=== PATIENT | female | born 2000 | race Two or more races ===

== ENCOUNTER 2018-09-01 18:08 | Emergency (ER) | payer MEDICAID ==
[~2018-09-01] VITALS: Ht 165.1 cm; Wt 61.1 kg
[2018-09-01 18:13] VITALS: BP 142/104
--- NOTE | 2018-09-01 19:00 | NUR ---
NO ANSWER IN LOBBY
--- NOTE | 2018-09-01 19:54 | NUR ---
PT IN ROOM 6 AT THIS TIME
[2018-09-01] MEDS ORDERED: CYCLOBENZAPRINE 10 MG TABLET PO ONE (20:30)
[2018-09-01] MEDS ORDERED: KETOROLAC 30 MG/1 ML IM ONE (20:30)
[2018-09-01] MEDS ORDERED: KETOROLAC 30 MG/1 ML ONE (20:35)
[2018-09-01] MEDS ORDERED: CYCLOBENZAPRINE 10 MG TABLET ONE (20:36)
== END 2018-09-01 21:04 | disposition home or self-care (01) ==
LOC: ED 20:58
DX: S16.1XXA Strain of muscle, fascia and tendon at neck level, initial encounter (principal); S29.012A Strain of muscle and tendon of back wall of thorax, initial encounter; V49.49XA Driver injured in collision with other motor vehicles in traffic accident, initial encounter; Y93.89 Activity, other specified; Y92.89 Other specified places as the place of occurrence of the external cause; Y99.8 Other external cause status
CPT/HCPCS: 72125; 96372; 99284; J1885

== ENCOUNTER 2018-09-12 18:45 | Emergency (ER) | payer MEDICAID ==
[~2018-09-12] VITALS: Ht 165.1 cm; Wt 62.9 kg
[2018-09-12 18:56] VITALS: BP 134/98
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
[2018-09-12 22:05] LABS: BASOPHILS # (AUTO) 0.03 x10^3/uL (0-0.3); BASOPHILS % (AUTO) 0 % (0-1); EOSINOPHILS # (AUTO) 0.11 x10^3/uL (0-0.8); EOSINOPHILS % (AUTO) 1 % (1-7); LYMPHOCYTES # (AUTO) 2.72 x10^3/uL (1-6.1); LYMPHOCYTES % (AUTO) 34 % (22-44); MD NO; MEAN CORPUSCULAR HEMOGLOBIN 29.2 pg (27.0-34.8); MEAN CORPUSCULAR HGB CONC 33.6 g/dL (32.4-35.8); MEAN CORPUSCULAR VOLUME 86.9 fL (80-100); MEAN PLATELET VOLUME 8.7 fL (7.4-10.4); MONOCYTES # (AUTO) 0.65 x10^3/uL (0-1.4); MONOCYTES % (AUTO) 8 % (2-9); NEUTROPHILS # (AUTO) 4.45 x10^3/uL (1.8-8.0); NEUTROPHILS % (AUTO) 56 % (42-75); PLATELET COUNT 228 x10^3/uL (130-400); RED BLOOD COUNT 4.73 x10^6/uL (3.82-5.3); RED CELL DISTRIBUTION WIDTH 13.5 % (9.6-15.2)
[2018-09-12 22:16] LABS: ALANINE AMINOTRANSFERASE 26 U/L (12-78); ALBUMIN 4.2 g/dL (3.4-5.0); ANION GAP 4 mmol/L (5-15); CALCIUM 8.4 mg/dL (8.5-10.1); CHLORIDE 109 mmol/L (98-107); CREATININE 0.66 mg/dL (0.55-1.02)
[2018-09-12 22:19] LABS: ALKALINE PHOSPHATASE 70 U/L (45-117); BILIRUBIN,TOTAL 0.7 mg/dL (0.2-1.0); TOTAL PROTEIN 7.7 g/dL (6.4-8.2)
--- NOTE | 2018-09-12 22:50 | NUR ---
PT MEDICATED PER EMAR FOR ANXIETY.
--- NOTE | 2018-09-12 23:09 | NUR ---
REPORT TO MELISSA FLORES.
--- NOTE | 2018-09-12 23:30 | NUR ---
DC EDUCATION PROVIDED, PT DEMONSTRATES UNDERSTANDING. PT AMBULATED STEADILY TO DC WITH RN Addendum: 09/12/18 at 2330 by KYLE PT TO TAKE UB HOME
== END 2018-09-12 23:31 | disposition home or self-care (01) ==
LOC: ED 20:57
DX: F41.1 Generalized anxiety disorder (principal); N93.8 Other specified abnormal uterine and vaginal bleeding; N92.0 Excessive and frequent menstruation with regular cycle
CPT/HCPCS: 36415; 80053; 83605; 85025; 99284